=== PATIENT | male | born 1950 | race Caucasian/White ===

== ENCOUNTER 2019-01-14 09:39 | Day surgery (SDC) | payer OTHER, MEDICARE ==
[2019-01-08 18:24] VITALS: BMI 44.9
[2019-01-14 10:23] VITALS: TEMP 98
[2019-01-14] MEDS ORDERED: PROPOFOL 20 ML ONE ×3 (11:15)
[2019-01-14 13:52] VITALS: BP 110/77; PULSE 66
--- NOTE | 2019-01-16 12:47 | PATH ---
Surgical Pathology Report Patient Name: MARICRUZ HOGAN [facility] Rec. #: [id number] /Age/Gender: 1950 (Age: 68) / M Account: [id number] Location: [facility] Taken: 01/14/2019 Received: 01/14/2019 Reported: 01/16/2019 Physicians: Ayan Young M.D. Specimen(s) Received A: GASTRIC ANTRUM B: GASTRIC POLYP C: ESOPHAGUS D: POLYP PROXIMAL RIGHT COLON E: POLYP DISTAL RIGHT COLON (X3) F: POLYP LEFT COLON (X2) G: POLYP SIGMOID COLON Clinical History History of polyps, Thurston's esophagus Postoperative diagnosis: Gastritis, gastric polyp, Thurston's esophagus, colon polyps, diverticulosis Final Diagnosis A. GASTRIC ANTRUM, BIOPSY: MILD CHRONIC GASTRITIS WITH FEATURES OF REACTIVE GASTROPATHY. IMMUNOSTAIN IS NEGATIVE FOR H PYLORI ORGANISMS. B. GASTRIC POLYP, BIOPSY: MILD CHRONIC GASTRITIS WITH FEATURES OF REACTIVE GASTROPATHY. IMMUNOSTAIN IS NEGATIVE FOR H PYLORI ORGANISMS. C. ESOPHAGUS, BIOPSY: ESOPHAGOGASTRIC JUNCTIONAL (SQUAMOCOLUMNAR) MUCOSA SHOWING INTESTINAL METAPLASIA AND CHRONIC INFLAMMATION, CONSISTENT WITH THURSTON'S ESOPHAGUS IN CONJUNCTION WITH APPROPRIATE ENDOSCOPIC FINDINGS. NEGATIVE FOR DYSPLASIA. D. PROXIMAL RIGHT COLON, POLYP, BIOPSY: HYPERPLASTIC POLYP, INFLAMED. E. DISTAL RIGHT COLON, POLYP (X3), BIOPSY: TUBULAR ADENOMA (X2). F. LEFT COLON, POLYP (X2), BIOPSY: TUBULAR ADENOMA (X2). G. SIGMOID COLON, POLYP, BIOPSY: TUBULAR ADENOMA. Electronically Signed Love Leavitt M.D. Gross Description A. Received in formalin, labeled "biopsy gastric antrum" are 2 mesa, irregular portions of soft tissue measuring 0.3 and 0.4 cm. in greatest dimension. The specimens are submitted in toto in one cassette. B. Received in formalin, labeled "biopsy gastric polyp" is a mesa, irregular portion of soft tissue measuring 0.4 cm. in greatest dimension. The specimen is submitted in toto in one cassette. C. Received in formalin, labeled "biopsy esophagus history of Thurston's" are 4 mesa, irregular portions of soft tissue ranging from 0.1-0.4 cm. in greatest dimension. The specimens are submitted in toto in one cassette. D. Received in formalin, labeled "biopsy polyp proximal right colon" is a mesa, irregular portion of soft tissue measuring 0.4 cm. in greatest dimension. The specimen is submitted in toto in one cassette. E. Received in formalin, labeled "biopsy polyp distal right colon x3" are 2 mesa, irregular portions of soft tissue measuring 0.3 and 0.7 cm. in greatest dimension. There is no additional tissue within the container. The specimens are submitted in toto in one cassette. F. Received in formalin, labeled "biopsy polyp left colon x2" are 2 mesa, irregular portions of soft tissue measuring 0.3 and 0.4 cm. in greatest dimension. The specimens are submitted in toto in one cassette. G. Received in formalin, labeled "biopsy polyp sigmoid colon" is a mesa, irregular portion of soft tissue measuring 0.3 cm. in greatest dimension. The specimen is submitted in toto in one cassette. 01/15/2019 [facility]15[facility]2019
== END 2019-01-14 12:30 | disposition home or self-care (01) ==
LOC: FASU-ENDO 09:39
PROVIDERS: ATTEND Internal Medicine Gastroenterology
PROC: 0DBM8ZX Excision of Descending Colon, Via Natural or Artificial Opening Endoscopic, Diagnostic (ICD-10-PCS; 2019-01-14)
PROC: 0DB48ZX Excision of Esophagogastric Junction, Via Natural or Artificial Opening Endoscopic, Diagnostic (ICD-10-PCS; 2019-01-14)
PROC: 0DB68ZX Excision of Stomach, Via Natural or Artificial Opening Endoscopic, Diagnostic (ICD-10-PCS; 2019-01-14)
PROC: 0DBK8ZX Excision of Ascending Colon, Via Natural or Artificial Opening Endoscopic, Diagnostic (ICD-10-PCS; principal; 2019-01-14 11:05)
DX: Z86.010 Personal history of colon polyps (principal); D12.2 Benign neoplasm of ascending colon; D12.4 Benign neoplasm of descending colon; D12.5 Benign neoplasm of sigmoid colon; K57.30 Diverticulosis of large intestine without perforation or abscess without bleeding; K29.50 Unspecified chronic gastritis without bleeding; K31.9 Disease of stomach and duodenum, unspecified; K22.70 Barrett's esophagus without dysplasia
CPT/HCPCS: 82962; 88305-TC; 88342-TC